=== PATIENT | female | born 1960 | race African-American/Black ===

== ENCOUNTER 2023-11-28 03:50 | Emergency (ER) | payer MEDICAID ==
[~2023-11-28] VITALS: Ht 162.6 cm; Wt 114.0 kg
[~2023-11-28 03:50] MED LIST: ALBU6.7H15 INH; AMLO5TAB88 PO; ASPI-1406 PO; BENA-8 PO; CARV6.2548 PO; CLOP75TA33 PO; FLUT1DIS3 INH; FURO40TA5 PO; INSU100I28 SQ; IPRA3AMP9 NEB; METF-414 MT; MONT-39 PO; OMEP20CA14 PO; SPIR25TA6 PO; TRAZ-252 PO
[2023-11-28 03:55] VITALS: O2SAT 84
[2023-11-28] MEDS: METHYLPREDNISOLONE SOD SUCC 125MG/2ML (ACT-O-VIAL) IV STA (04:13)
[2023-11-28 04:19] LABS: BASOPHILS % 0.6 % (0.0-2.0); DIFFERENTIAL COMMENT 0; HEMATOCRIT. 43.7 % (36.0-48.0); HEMOGLOBIN. 12.8 g/dL (12.0-16.0); LYMPHOCYTES % 51.8 % (20.0-50.0); MEAN CORPUSCULAR HEMOGLOBIN 30.3 pg (28.0-32.0); MEAN CORPUSCULAR HGB CONC 29.2 g/dL (31.0-37.0); MEAN CORPUSCULAR VOLUME 103.6 fL (81.0-99.0); MEAN PLATELET VOLUME 10.6 fl (7.4-10.4); MONOCYTES % 5.1 % (2.0-8.0); NEUTROPHILS % 41.5 % (40.0-76.0); PLATELET 275 x1000/uL (130-400); RED BLOOD CELL COUNT 4.22 mill/uL (4.2-5.4); WHITE BLOOD COUNT 15.4 x1000/uL (4.5-11.0)
[2023-11-28 04:20] VITALS: RESP 31
[2023-11-28] MEDS: IPRATROPIUM BROMIDE (0.02%) 0.5MG/2.5ML NEB HHN STA (04:24)
[2023-11-28] MEDS: ALBUTEROL (0.083%) 2.5MG/3ML NEB HHN STA (04:24)
[2023-11-28 04:34] LABS: ALANINE AMINOTRANSFERASE 44 IU/L (10-49); ASPARTATE AMINOTRANSFERASE 66 IU/L (<34); BILIRUBIN TOTAL 0.2 mg/dL (0.1-1.0); CALCIUM 9.2 mg/dL (8.7-10.4); CARBON DIOXIDE 18 mEq/L (21-32); CHLORIDE 104 mEq/L (98-107); POTASSIUM 4.3 mEq/L (3.5-5.1); PROTEIN TOTAL 6.9 g/dL (6.0-8.3); SODIUM 139 mEq/L (136-145); TROPONIN I HIGH SENSITIVITY 17 ng/L (3.0-34); UREA NITROGEN BLOOD 26 mg/dL (9-23)
[2023-11-28] MEDS: HYDRALAZINE 20MG/ML VIAL IV NR (04:34)
[2023-11-28 04:38] LABS: CREATININE 1.5 mg/dL (0.6-1.0); ETHANOL BLOOD < 10 mg/dL (<10); GLUCOSE 408 mg/dL (70-105); LACTIC ACID 11.2 mmol/L (0.4-2.0)
[2023-11-28] MEDS ORDERED: ONDANSETRON HCL 4MG/2ML INJ IV ONE (05:00)
[2023-11-28 05:05] VITALS: BP 167/104; PULSE 140; RESP 38; TEMP 98.3
== END 2023-11-28 05:35 ==
LOC: ER 03:50
DX: J96.01 Acute respiratory failure with hypoxia (principal); I46.9 Cardiac arrest, cause unspecified; I11.0 Hypertensive heart disease with heart failure; I50.9 Heart failure, unspecified; E11.9 Type 2 diabetes mellitus without complications; J45.909 Unspecified asthma, uncomplicated; Z20.822 Contact with and (suspected) exposure to COVID-19; Z88.0 Allergy status to penicillin; Z79.899 Other long term (current) drug therapy
CPT/HCPCS: 80053; 80320; 82962; 83880; 83605; 85025; 87040; 84484; 87804 ×2; 36415; 71045; 94640; 93005; 96374; 96375; 99291; 87426; J0360; J2930; Z7610 ×3; 94660; G0480